=== PATIENT | female | born 1980 | race Caucasian/White ===

== ENCOUNTER 2017-09-23 21:22 | Emergency (ER) | payer SELFPAY ==
[~2017-09-23] VITALS: Ht 162.5 cm; Wt 49.9 kg
[~2017-09-23 21:22] MED LIST: CIPRODEX 0.3%-7.5 ML OT; CLARITIN10 MG PO; TRAMADOL HCL50 MG PO; ZITHROMAX Z PA250 MG PO
[2017-09-23 22:17] LABS: BASO # 0.1 10*3/uL (0.0-0.1); BASO % 0.4 % (0.0-1.0); EOS # 0.1 10*3/uL (0.0-0.4); EOS % 0.4 % (1.0-4.0); HEMATOCRIT 39.9 % (37.0-47.0); LYMPH # 1.7 10*3/uL (1.3-4.4); LYMPH % 15.4 % (27.0-41.0); MEAN CELL VOLUME 92.6 fl (81.0-99.0); MEAN CORPUSCULAR HGB 32.5 pg (27.0-31.0); MEAN CORPUSCULAR HGB CONC 35.1 g/dl (33.0-37.0); MEAN PLATELET VOLUME 9.2 fl (9.6-12.3); MONO # 0.6 10*3/uL (0.1-1.0); MONO % 5.4 % (3.0-9.0); NEUT # 8.8 10*3/uL (2.3-7.9); NEUT % 78.1 % (47.0-73.0); PLATELET COUNT AUTOMATED 287 10*3/uL (130-400); RED BLOOD COUNT 4.31 10*6/uL (4.10-5.10); WHITE BLOOD COUNT 11.2 10*3/uL (4.8-10.8)
[2017-09-23 22:34] LABS: ALBUMIN 3.9 gm/dl (3.1-4.5); ALKALINE PHOSPHATASE 42 U/L (45-117); BUN 16 mg/dl (7-24); CHLORIDE 109 mmol/L (98-107); CREATININE 0.85 mg/dL (0.55-1.02); LIPASE 142 U/L (73-393); POTASSIUM 4.1 mmol/L (3.5-5.1); SGOT/AST 16 IU/L (3-35); SGPT/ALT 17 U/L (12-78); SODIUM 139 mmol/L (136-145); TOTAL PROTEIN 7.1 gm/dL (6.4-8.2)
[2017-09-23 22:35] LABS: TROPONIN I < 0.015 ng/ml (<0.045)
[2017-09-23 22:40] LABS: THYROID STIM HORMONE (HS) 0.701 uIU/ml (0.358-4.75)
[2017-09-23 22:42] LABS: BILIRUBIN NEGATIVE (NEGATIVE); BLOOD 2+ (NEGATIVE); CLARITY CLEAR (CLEAR); COLOR YELLOW (YELLOW); GLUCOSE NEGATIVE (NEGATIVE); KETONE NEGATIVE (NEGATIVE); LEUKO ESTERASE NEGATIVE (NEGATIVE); NITRITE NEGATIVE (NEGATIVE); UROBILINOGEN 0.2 E.U./dl (0.2-1.0)
[2017-09-23 22:48] LABS: EPITHELIAL CELLS 25-30
[2017-09-23 22:51] LABS: BACTERIA TRACE; URINE AMPHETAMINES < 1000 (1000ng/ml); URINE BARBITURATES < 200 (200ng/ml); URINE BENZODIAZEPINES < 200 (200ng/ml); URINE CANNABINOIDS (THC) > 50 (50ng/ml); URINE COCAINE < 300 (300ng/ml); URINE METHADONE < 300 (300ng/ml); URINE OPIATES < 300 (300ng/ml)
[2017-09-23 22:52] LABS: URINE PHENCYCLIDINE < 25 (25ng/ml)
== END 2017-09-23 23:47 | disposition home or self-care (01) ==
LOC: ED 21:22
PROVIDERS: Emergency Medicine Emergency Medical Services
DX: R25.8 Other abnormal involuntary movements (principal); F41.9 Anxiety disorder, unspecified; F31.9 Bipolar disorder, unspecified; F12.10 Cannabis abuse, uncomplicated

== ENCOUNTER 2022-06-20 08:21 | Emergency (ER) | payer OTHER ==
[2022-06-20 11:44] VITALS: BP 136/66
[2022-06-20 13:54] VITALS: BP 123/71
[2022-06-20 14:10] VITALS: BP 130/82
[2022-06-20 14:25] VITALS: BP 119/75
[2022-06-20 14:40] VITALS: BP 118/73
[2022-06-20 14:51] VITALS: BP 127/71
== END 2022-06-20 11:05 | disposition home or self-care (01) ==
LOC: ED 08:21
DX: S02.85XA Fracture of orbit, unspecified, initial encounter for closed fracture (principal); S01.111A Laceration without foreign body of right eyelid and periocular area, initial encounter; F17.210 Nicotine dependence, cigarettes, uncomplicated; W55.12XA Struck by horse, initial encounter; Y93.89 Activity, other specified; Y92.89 Other specified places as the place of occurrence of the external cause; Y99.8 Other external cause status

== ENCOUNTER 2022-06-30 13:06 | Emergency (ER) | payer OTHER ==
[~2022-06-30] VITALS: Ht 162.5 cm; Wt 50.3 kg
== END 2022-06-30 15:05 | disposition home or self-care (01) ==
LOC: ED 13:06
DX: S01.111D Laceration without foreign body of right eyelid and periocular area, subsequent encounter (principal); W55.12XD Struck by horse, subsequent encounter